=== PATIENT | female | born 1970 | race Caucasian/White ===

== ENCOUNTER → 2017-04-03 | Outpatient (CLI) | payer OTHER | END | disposition home or self-care (01) | LOC: CFH 07:42 | PROVIDERS: ATTEND Nurse Practitioner Primary Care | DX: Z12.31 Encounter for screening mammogram for malignant neoplasm of breast (principal); N64.89 Other specified disorders of breast | CPT/HCPCS: 77067 ==

== ENCOUNTER → 2017-04-23 | Outpatient (CLI) | payer OTHER | LOC: CFH 12:01 | PROVIDERS: ATTEND Nurse Practitioner Primary Care | DX: N64.89 Other specified disorders of breast (principal); N63.20 Unspecified lump in the left breast, unspecified quadrant | CPT/HCPCS: 77065 ==

== ENCOUNTER → 2017-04-24 | Outpatient (CLI) | payer OTHER ==
[~2017-04-24] MED LIST: LIDOCAINE 1%, 20ML ONE; LIDOCAINE 1%-EPI 1:100K, 20ML ONE
== END ==
LOC: CFH 12:57
PROVIDERS: ATTEND Nurse Practitioner Primary Care
DX: C50.912 Malignant neoplasm of unspecified site of left female breast (principal)
CPT/HCPCS: 19083; 77065; 88305; J3490; 88360

== ENCOUNTER → 2017-05-21 | Outpatient (CLI) | payer OTHER ==
[~2017-05-21] MED LIST changes: +CHOL10003 PO; +CYAN1TAB29 PO; +LEVO50TA5 PO; +LEVO75TA5 PO; -LIDOCAINE 1%, 20ML ONE; -LIDOCAINE 1%-EPI 1:100K, 20ML ONE
== END ==
LOC: STAR 08:08
PROVIDERS: ATTEND Surgery
DX: Z02.9 Encounter for administrative examinations, unspecified (principal)

== ENCOUNTER 2017-05-27 07:05 | Day surgery (SDC) | payer OTHER ==
[2017-05-21 08:58] VITALS: BP 121/73
[~2017-05-27] VITALS: Ht 172.7 cm; Wt 75.0 kg
[~2017-05-27 07:05] MED LIST changes: +BUPIVACAINE/PF 0.25% ONE; +ISOSULFAN BLUE 10 MG/ML, 5ML IV ONE
[2017-05-27] MEDS ORDERED: LIDOCAINE 1%, 2ML ONE (08:22)
[2017-05-27] MEDS ORDERED: SODIUM BICARBONATE 4.2%, 5ML ONE (08:22)
[2017-05-27] MEDS ORDERED: FENTANYL PF 250 MCG/5ML ONE (08:37)
[2017-05-27] MEDS ORDERED: MIDAZOLAM 1 MG/ML, 2ML ONE (08:37)
[2017-05-27] MEDS ORDERED: LACTATED RINGERS 1,000 ML IV SCH (08:41)
[2017-05-27 08:46] LABS: HCG UR SG 1.005 (1.003-1.030)
[2017-05-27] MEDS ORDERED: LIDOCAINE-MPF 1%, 2ML INFIL ONE (09:00)
[2017-05-27] MEDS ORDERED: ONDANSETRON 2MG/ML, 2ML ONE (11:07)
[2017-05-27] MEDS ORDERED: LIDOCAINE 4%, 4 ML SYR/CANN TP ONE (11:07)
[2017-05-27] MEDS ORDERED: LIDOCAINE-MPF 2% ,5ML ONE (11:07)
[2017-05-27] MEDS ORDERED: ROCURONIUM 10 MG/ML,10ML ONE (11:07)
[2017-05-27] MEDS ORDERED: DEXAMETHASONE 4 MG/ML, 1ML ONE (11:07)
[2017-05-27] MEDS ORDERED: PROPOFOL 10 MG/ML, 20ML ONE (11:07)
[2017-05-27] MEDS ORDERED: CEFAZOLIN 1,000 MG ONE (11:07)
[2017-05-27] MEDS ORDERED: NORTRIPTYLINE 25 MG CAPSULE ONE (11:07)
[2017-05-27] MEDS ORDERED: FENTANYL PF 100 MCG/2ML IV PRN (11:30)
[2017-05-27] MEDS ORDERED: ACETAMINOPHEN 325 MG TABLET PO PRN (11:30)
[2017-05-27] MEDS ORDERED: ONDANSETRON 2MG/ML, 2ML IVPush PRN (11:30)
[2017-05-27] MEDS ORDERED: morphine SULFATE 10 MG/ML, 1ML IV PRN (11:30)
[2017-05-27] MEDS ORDERED: OXYcodone 5 MG/5 ML ORAL.SOL UDC PO PRN (11:30)
[2017-05-27] MEDS ORDERED: PROMETHAZINE 12.5 MG SUPP PR PRN (11:30)
[2017-05-27] MEDS ORDERED: PROMETHAZINE 25 MG/ML, 1ML IV PRN (11:30)
[2017-05-27] MEDS ORDERED: HYDROcodone/APAP 7.5-325MG/15ML UDC PO PRN (11:30)
[2017-05-27] MEDS ORDERED: OXYcodone 5 MG/5 ML ORAL.SOL UDC ONE (12:13)
[2017-05-27] MEDS ORDERED: ACETAMINOPHEN 650 MG/20.3 ML UDC ONE (12:13)
== END 2017-05-27 14:25 | disposition home or self-care (01) ==
LOC: SDC 07:05
PROVIDERS: ATTEND Surgery
DX: C50.912 Malignant neoplasm of unspecified site of left female breast (principal); E03.9 Hypothyroidism, unspecified; Z98.890 Other specified postprocedural states; Z72.89 Other problems related to lifestyle; Z88.8 Allergy status to other drugs, medicaments and biological substances
CPT/HCPCS: 19285; 19301; 38525; 38792; 76098; 77065; 81025; 88307; 88333; A9541; J0690; J1100; J2250; J2405; J2704; J3010; J3490; J7120

== ENCOUNTER → 2017-06-27 | Outpatient (CLI) | payer OTHER ==
[~2017-06-27] MED LIST changes: -BUPIVACAINE/PF 0.25% ONE; -ISOSULFAN BLUE 10 MG/ML, 5ML IV ONE
== END | disposition home or self-care (01) ==
LOC: ROC 07:05
PROVIDERS: ATTEND Radiology Radiation Oncology
DX: C50.412 Malignant neoplasm of upper-outer quadrant of left female breast (principal)
CPT/HCPCS: 99212; G0463

== ENCOUNTER → 2017-10-14 | Outpatient (CLI) | payer OTHER | END | disposition home or self-care (01) | LOC: EDSTATUS 09-26 13:06 → ROC 07:22 | PROVIDERS: ATTEND Radiology Radiation Oncology | DX: C50.412 Malignant neoplasm of upper-outer quadrant of left female breast (principal) | CPT/HCPCS: 99213; G0463 ==

== ENCOUNTER 2018-03-24 09:37 | Outpatient (CLI) | payer OTHER | END 2018-03-24 23:59 | disposition home or self-care (01) | LOC: CFH 09:37 | PROVIDERS: ATTEND Radiology Radiation Oncology | DX: C50.412 Malignant neoplasm of upper-outer quadrant of left female breast (principal) | CPT/HCPCS: 77066; G0279 ==

== ENCOUNTER → 2018-08-18 | Outpatient (CLI) | payer OTHER | END | disposition home or self-care (01) | LOC: ROC 09:24 | PROVIDERS: ATTEND Radiology Radiation Oncology | DX: Z08 Encounter for follow-up examination after completed treatment for malignant neoplasm (principal); Z85.3 Personal history of malignant neoplasm of breast | CPT/HCPCS: 99212; G0463 ==

== ENCOUNTER → 2019-03-25 | Outpatient (CLI) | payer OTHER | END | disposition home or self-care (01) | LOC: CFH 07:38 | PROVIDERS: ATTEND Internal Medicine Hematology & Oncology | DX: Z12.31 Encounter for screening mammogram for malignant neoplasm of breast (principal); N64.89 Other specified disorders of breast | CPT/HCPCS: 77063; 77067 ==

== ENCOUNTER → 2019-04-06 | Outpatient (CLI) | payer OTHER | END | disposition home or self-care (01) | LOC: CFH 08:05 | PROVIDERS: ATTEND Internal Medicine Hematology & Oncology | DX: C50.412 Malignant neoplasm of upper-outer quadrant of left female breast (principal); N63.21 Unspecified lump in the left breast, upper outer quadrant; N64.89 Other specified disorders of breast; Z79.810 Long term (current) use of selective estrogen receptor modulators (SERMs) | CPT/HCPCS: 76642; 77065 ==

== ENCOUNTER → 2020-04-15 | Outpatient (CLI) | payer OTHER | END | disposition home or self-care (01) | LOC: CFH 09:11 | PROVIDERS: ATTEND Internal Medicine Hematology & Oncology | DX: Z12.31 Encounter for screening mammogram for malignant neoplasm of breast (principal) | CPT/HCPCS: 77063; 77067 ==